=== PATIENT | female | born 1930 | race Caucasian/White ===

== ENCOUNTER 2016-06-22 12:23 | Emergency (ER) | payer MEDICARE, BC | END 2016-06-22 13:14 | disposition home or self-care (01) | DX: S50.12XA Contusion of left forearm, initial encounter (principal); W22.8XXA Striking against or struck by other objects, initial encounter; Y93.E9 Activity, other interior property and clothing maintenance; Y92.003 Bedroom of unspecified non-institutional (private) residence as the place of occurrence of the external cause; Y99.8 Other external cause status; I10 Essential (primary) hypertension; E03.9 Hypothyroidism, unspecified ==

== ENCOUNTER 2016-11-13 08:17 | Outpatient (CLI) | payer MEDICARE, BC ==
[2016-11-13 08:54] LABS: BASOPHILS % (AUTO) 0.5 %; EOSINOPHILS # (AUTO) 0.1 10^3/uL (0.0-0.7); EOSINOPHILS % (AUTO) 2.1 %; HCT - HEMATOCRIT 46.1 % (37.0-47.0); HGB - HEMOGLOBIN 15.2 g/dL (12.0-16.0); LYMPHOCYTES # (AUTO) 1.5 10^3/uL (1.5-3.5); LYMPHOCYTES % (AUTO) 28.5 %; MEAN CORPUSCULAR HEMOGLOBIN 29.3 pg (27.0-31.0); MEAN CORPUSCULAR VOLUME 88.8 fL (81.0-99.0); MEAN PLATELET VOLUME 7.2 fL (7.9-10.8); MONOCYTES # (AUTO) 0.4 10^3/uL (0.0-1.0); MONOCYTES % (AUTO) 7.3 %; NEUTROPHILS # (AUTO) 3.3 10^3/uL (1.5-6.6); NEUTROPHILS % (AUTO) 61.6 %; RED CELL DISTRIBUTION WIDTH 15.1 % (12.0-15.0); UNCORRECTED WHITE BLOOD COUNT 5.4 x10^3/uL; WHITE BLOOD COUNT 5.4 x10^3/uL (4.8-10.8)
[2016-11-13 09:12] LABS: ALBUMIN/GLOBULIN RATIO 1.4 (1.0-2.2); BILIRUBIN,TOTAL 0.5 mg/dL (0.2-1.0); BUN - BLOOD UREA NITROGEN 21 mg/dL (6-20); CARBON DIOXIDE - CO2 28 mmol/L (21-32); CHLORIDE 105 mmol/L (101-111); CHOL/HDL RATIO 3.3 (<4.4); CHOLESTEROL 129 mg/dL; CREATININE 0.8 mg/dL (0.4-1.0); GFR - MDRD 68 (>89); GLUCOSE 127 mg/dL (70-100); HDL CHOLESTEROL 39 mg/dL; LDL/HDL RATIO 1.8 (<4.4); POTASSIUM 4.2 mmol/L (3.5-5.0); SODIUM 142 mmol/L (135-145); TOTAL PROTEIN 6.8 g/dL (6.7-8.2); TRIGLYCERIDES 104 mg/dL; VLDL CHOLESTEROL 21 mg/dL
[2016-11-13 09:44] LABS: HEMOGLOBIN A1C 0.71 g/dL
== END 2016-11-13 08:18 | disposition home or self-care (01) ==
LOC: LAB 08:17
PROVIDERS: ATTEND Internal Medicine
DX: M19.90 Unspecified osteoarthritis, unspecified site (principal); Z79.899 Other long term (current) drug therapy; I73.9 Peripheral vascular disease, unspecified; E78.5 Hyperlipidemia, unspecified; E03.9 Hypothyroidism, unspecified; C50.919 Malignant neoplasm of unspecified site of unspecified female breast; I10 Essential (primary) hypertension
CPT/HCPCS: 36415; 80053; 80061; 83036; 84443; 85025

== ENCOUNTER 2016-11-26 10:43 | Outpatient (CLI) | payer MEDICARE, BC ==
--- NOTE | 2016-11-26 16:28 | DEXA Report ---
DEXA SCAN: 11/26/2016 CLINICAL INDICATION: Postmenopausal. TECHNIQUE: Dual energy x-ray absorptiometry (DXA) was performed on a [employer] system. Regions measured are the AP spine, femoral neck, and, if needed, forearm. COMPARISON: None. In accordance with the International Society for Clinical Densitometry (ISCD) guidelines, data from previous exams may be reanalyzed using current recommendations and techniques. This is done to allow a more accurate basis for comparison with the current study. FINDINGS The data for the lumbar spine is as follows: REGION BMD (g/cm/cm) T-SCORE Z-SCORE L1 0.998 -1.1 -0.1 L2 1.181 -0.2 0.9 L3 1.303 0.9 1.9 L4 1.211 0.1 1.1 TOTAL 1.177 0.0 1.0 NOTE: All evaluable vertebrae are used for classification. The data for the hip is as follows: REGION BMD (g/cm/cm) T-SCORE Z-SCORE Neck 0.742 -2.1 -0.2 TOTAL 0.748 -2.1 -0.3 NOTE: The femoral neck or total proximal femur, whichever is lowest, is used for classification. IMPRESSION: THE WHO CLASSIFICATION BASED ON THE INTERNATIONAL REFERENCE STANDARD IS OSTEOPENIA. THE FRACTURE RISK IS INCREASED. RECOMMENDATION: Patients with diagnosis of osteoporosis or osteopenia should have regular bone mineral density assessment. For those eligible for Medicare, routine testing is allowed once every 2 years. Testing frequency can be increased for patients who have rapidly progressing disease or for those who are receiving medical therapy to restore bone mass. COMMENT: World Health Organization (WHO) definitions for osteoporosis and osteopenia: NORMAL BMD: T-score at -1.0 or higher, fracture risk is low. OSTEOPENIA BMD: T-score between -1.0 and -2.5, fracture risk is increased. OSTEOPOROSIS BMD: T-score at -2.5 or lower, fracture risk high. National Osteoporosis Foundation recommends: 1. Obtain adequate dietary calcium (at least 1200 mg per day) and vitamin D (400 -800 international units per day). 2. Participate, as appropriate, in regular weightbearing and muscle- strengthening exercise. 3. Avoid tobacco use and reduce alcohol and caffeine intake. 4. For more detailed information see the website at www.NOF.org. MTDD
== END 2016-11-26 10:44 | disposition home or self-care (01) ==
LOC: DI 10:43
PROVIDERS: ATTEND Internal Medicine
DX: M85.88 Other specified disorders of bone density and structure, other site (principal); Z78.0 Asymptomatic menopausal state
CPT/HCPCS: 77080

== ENCOUNTER 2017-02-05 15:14 | Emergency (ER) | payer MEDICARE, BC ==
[2017-02-05 15:30] VITALS: BP 191/73
--- NOTE | 2017-02-05 16:05 | ED Physician Documentation ---
PD HPI UPPER EXT INJURY - Stated complaint Stated Complaint: R MID FINGER LAC - Chief complaint Chief Complaint: Laceration - History obtained from History obtained from: Patient - History of Present Illness Location: Right, Finger (middle) Where injury occurred: Home Timing - onset: Yesterday - Additonal information Additional information: The patient is a pleasant 86-year-old female who cut her right middle finger yesterday when slicing meat. She is left-hand dominant. Tetanus status is up- to-date. Review of Systems Constitutional: denies: Fever Skin: reports: Laceration (s) PD PAST MEDICAL HISTORY - Past Medical History Past Medical History: Yes Cardiovascular: Hypertension Endocrine/Autoimmune: HyPOthyroidism Musculoskeletal: Osteoarthritis - Past Surgical History Past Surgical History: Yes Ortho: Other - Present Medications Home Medications: Ambulatory Orders Medication Instructions Recorded Confirmed Atorvastatin [Lipitor] 20 mg PO DAILY 08/22/14 02/05/17 Levothyroxine [Synthroid] 112 mcg PO DAILY 08/22/14 02/05/17 Lisinopril 40 mg PO DAILY 08/22/14 02/05/17 amLODIPine [Norvasc] 10 mg PO DAILY 08/22/14 02/05/17 hydroCHLOROthiazide 25 mg PO DAILY 08/22/14 02/05/17 [Hydrochlorothiazide] Multivitamin [Multi-Vitamin Daily] 1 tab PO DAILY 08/23/14 02/05/17 - Allergies Allergies/Adverse Reactions: Allergies Allergy/AdvReac Type Severity Reaction Status Date / Time No Known Drug Allergies Allergy Verified 02/05/17 15:29 - Social History Does the pt smoke?: No Smoking Status: Never smoker Does the pt drink ETOH?: No Does the pt have substance abuse?: No - Immunizations Immunizations are current?: Yes - POLST Patient has POLST: No PD ED PE NORMAL - Vitals Vital signs reviewed: Yes (Hypertensive initially) - General General: Alert and oriented X 3, Well developed/nourished - HEENT HEENT: Atraumatic - Respiratory Respiratory: No respiratory distress - Extremities Extremities: Other (There is a 1.5 cm laceration across the volar aspect of the right middle finger, just distal to the DIP joint. She has full flexion and extension of the DIP, PIP, and MCP joints against resistance. Distal neurovascular is intact.) - Neuro Neuro: Alert and oriented X 3, No motor deficit, No sensory deficit, Normal speech Results - Vitals Vitals: Vital Signs - 24 hr 02/05/17 15:24 Temperature 36.2 C L Heart Rate 68 Respiratory 16 Rate Blood Pressure 191/73 H O2 Saturation 98 Oxygen O2 Source [With Activity] Nasal cannula O2 Source [Without Activity] Nasal cannula O2 Source Room air Procedures - Laceration (location) Right middle finger Length in cm: 1.5 Wound type: Linear, Into subcut fat Neurovascular status: Sensory intact, Motor intact, Vascular intact Tendon involvement: Tendon intact Anesthesia: Lidocaine 1% Wound Preparation: Hibiclens, Irrigated copiously NS, Wound explored, To the base. No: FB identified Skin layer closure: Nylon, Interrupted, Size #-0 - enter number (5), Sutures - enter # (5) Other: Patient tolerated well, No complications, Neurovascular intact, Dressing applied, Tetanus UTD Complexity: Simple PD MEDICAL DECISION MAKING - ED course Complexity details: considered differential, d/w patient ED course: The patient's presentation is significant for laceration of the right middle finger. She reports up-to-date tetanus status. Treatment in the emergency department included suture repair of the wound after local anesthetic with 1% lidocaine, and thorough irrigation. I discussed with her the expected course of healing, timing for suture removal, as well as potentially worrisome signs or symptoms that should prompt reevaluation in the emergency department. Departure - Departure Disposition: 01 Home, Self Care Clinical Impression: Laceration Condition: Stable Instructions: ED Laceration Hand Follow-Up: Som Jang MD [Primary Care Provider] - Comments: Keep the wound clean. Follow-up for suture removal in about 10 days. Follow-up sooner, or return to the emergency department, if you develop any sign of infection, or otherwise worsening symptoms.
[2017-02-05] MEDS ORDERED: BACITRACIN OINT TOP ONE (16:10)
== END 2017-02-05 16:14 | disposition home or self-care (01) ==
LOC: ED 15:14
DX: S61.212A Laceration without foreign body of right middle finger without damage to nail, initial encounter (principal); W26.0XXA Contact with knife, initial encounter; Y93.G1 Activity, food preparation and clean up; Y92.010 Kitchen of single-family (private) house as the place of occurrence of the external cause; I10 Essential (primary) hypertension; E03.9 Hypothyroidism, unspecified; M19.90 Unspecified osteoarthritis, unspecified site
CPT/HCPCS: 12001; 99283; A9270

== ENCOUNTER 2017-02-22 10:34 | Outpatient (CLI) | payer MEDICARE, BC | END 2017-02-22 10:35 | disposition home or self-care (01) | LOC: RT 10:34 | PROVIDERS: ATTEND Internal Medicine | DX: J44.9 Chronic obstructive pulmonary disease, unspecified (principal) | CPT/HCPCS: 94010 ==

== ENCOUNTER 2017-02-26 08:28 | Outpatient (CLI) | payer MEDICARE, BC | END 2017-02-26 08:29 | disposition home or self-care (01) | LOC: DI 08:28 | PROVIDERS: ATTEND Internal Medicine | DX: R01.1 Cardiac murmur, unspecified (principal) | CPT/HCPCS: 93306 ==

== ENCOUNTER 2017-11-30 08:00 | Outpatient (CLI) | payer MEDICARE, BC ==
[2017-11-30 13:58] LABS: BASOPHILS % (AUTO) 0.2 %; EOSINOPHILS # (AUTO) 0.1 10^3/uL (0.0-0.7); EOSINOPHILS % (AUTO) 2.3 %; HGB - HEMOGLOBIN 15.6 g/dL (12.0-16.0); LYMPHOCYTES # (AUTO) 1.3 10^3/uL (1.5-3.5); LYMPHOCYTES % (AUTO) 24.6 %; MEAN CORPUSCULAR HEMOGLOBIN 30.1 pg (27.0-31.0); MEAN CORPUSCULAR HGB CONC 34.4 g/dL (32.0-36.0); MEAN CORPUSCULAR VOLUME 87.6 fL (81.0-99.0); MEAN PLATELET VOLUME 7.9 fL (7.9-10.8); MONOCYTES # (AUTO) 0.4 10^3/uL (0.0-1.0); MONOCYTES % (AUTO) 7.1 %; NEUTROPHILS # (AUTO) 3.6 10^3/uL (1.5-6.6); NEUTROPHILS % (AUTO) 65.8 %; PLT - PLATELET COUNT 173 10^3/uL (130-450); RED BLOOD COUNT 5.18 10^6/uL (4.20-5.40); RED CELL DISTRIBUTION WIDTH 14.7 % (12.0-15.0); WHITE BLOOD COUNT 5.4 x10^3/uL (4.8-10.8)
[2017-11-30 14:26] LABS: ALBUMIN 4.1 g/dL (3.2-5.5); ALBUMIN/GLOBULIN RATIO 1.5 (1.0-2.2); ALKALINE PHOSPHATASE 64 IU/L (42-121); ALT ALANINE AMINOTRANSFERASE 21 IU/L (10-60); AST ASPARTATE AMINOTRANSFERASE 21 IU/L (10-42); BILIRUBIN,TOTAL 0.7 mg/dL (0.2-1.0); BUN - BLOOD UREA NITROGEN 20 mg/dL (6-20); CALCIUM 8.6 mg/dL (8.5-10.3); CARBON DIOXIDE - CO2 29 mmol/L (21-32); CHLORIDE 103 mmol/L (101-111); CHOL/HDL RATIO 3.2 (<4.4); CHOLESTEROL 130 mg/dL; CREATININE 0.9 mg/dL (0.4-1.0); GFR - MDRD 59 (>89); GLUCOSE 112 mg/dL (70-100); HDL CHOLESTEROL 41 mg/dL; LDL CHOLESTEROL,CALCULATED 60 mg/dL; LDL/HDL RATIO 1.5 (<4.4); SODIUM 140 mmol/L (135-145); TOTAL PROTEIN 6.9 g/dL (6.7-8.2); VLDL CHOLESTEROL 29 mg/dL
== END 2017-11-30 08:01 | disposition home or self-care (01) ==
LOC: LAB.R 08:00
PROVIDERS: ATTEND Internal Medicine
DX: E88.81 Metabolic syndrome and other insulin resistance (principal); E78.5 Hyperlipidemia, unspecified; J44.9 Chronic obstructive pulmonary disease, unspecified; E03.9 Hypothyroidism, unspecified; C50.919 Malignant neoplasm of unspecified site of unspecified female breast; I10 Essential (primary) hypertension; Z79.899 Other long term (current) drug therapy
CPT/HCPCS: 36415; 80053; 80061; 83721; 84443; 85025

== ENCOUNTER 2018-04-18 08:34 | Emergency (ER) | payer MEDICARE, BC ==
--- NOTE | 2018-04-18 08:48 | ED Physician Documentation ---
PD HPI TRUNK INJURY - Stated complaint Stated Complaint: GLF/RIB BACK AND ABD PX - Chief complaint Chief Complaint: General - History obtained from History obtained from: Patient - History of Present Illness Location: Anterior chest Type of injury: Fall (She says her feet got caught in blanket and she fell forward.) Timing - onset: How many days ago (3) Timing - duration: Days (3) Timing - details: Abrupt onset, Still present Quality: Pain Worsened by: Moving, Palpating, Other (deep breathing and cough) Associated symtptoms: No: Weakness, Numbness Review of Systems Constitutional: denies: Fever, Chills, Myalgias Nose: reports: Congestion Throat: denies: Sore throat Cardiac: reports: Chest pain / pressure (since the fall, not prior.). denies: Palpitations Respiratory: reports: Dyspnea, Cough (for couple of weeks, with congestion and some wheezing feeling.) PD PAST MEDICAL HISTORY - Past Medical History Cardiovascular: Hypertension Endocrine/Autoimmune: HyPOthyroidism Musculoskeletal: Osteoarthritis - Past Surgical History Past Surgical History: Yes Ortho: Other - Present Medications Home Medications: Ambulatory Orders Medication Instructions Recorded Confirmed Levothyroxine [Synthroid] 112 mcg PO DAILY 08/22/14 02/05/17 RX: Atorvastatin [Lipitor] 20 mg PO DAILY 08/22/14 02/05/17 RX: Lisinopril 40 mg PO DAILY 08/22/14 02/05/17 RX: amLODIPine [Norvasc] 10 mg PO DAILY 08/22/14 02/05/17 RX: hydroCHLOROthiazide 25 mg PO DAILY 08/22/14 02/05/17 [Hydrochlorothiazide] Multivitamin [Multi-Vitamin Daily] 1 tab PO DAILY 08/23/14 02/05/17 Benzonatate [Tessalon Perle] 100 mg PO TID PRN #25 capsule 04/18/18 Dexamethasone [Decadron] 4 mg PO DAILY #5 tablet 04/18/18 Oxycodone HCl/Acetaminophen 1 each PO Q6H PRN #20 tablet 04/18/18 [Percocet 5-325 mg Tablet] RX: Albuterol Sulf [Ventolin Hfa 2 - 3 puffs INH Q4HR PRN #1 inhaler 04/18/18 Inhaler] RX: Azithromycin [Zithromax] 0 mg PO DAILY #6 tablet 04/18/18 - Allergies Allergies/Adverse Reactions: Allergies Allergy/AdvReac Type Severity Reaction Status Date / Time No Known Drug Allergies Allergy Verified 04/18/18 08:47 - Social History Does the pt smoke?: No Smoking Status: Never smoker Does the pt drink ETOH?: No Does the pt have substance abuse?: No - Immunizations Immunizations are current?: Yes - POLST Patient has POLST: No PD ED PE NORMAL - Vitals Vital signs reviewed: Yes - General General: Alert and oriented X 3, Well developed/nourished, Other (appears in pain with breathing and moving. Tender anterior lower chest without crepitance nor deformity. ) - HEENT HEENT: Ears normal, Pharynx benign - Neck Neck: Supple, no meningeal sign, No bony TTP, No adenopathy - Cardiac Cardiac: RRR, No murmur - Respiratory Respiratory: No: Clear bilaterally (some congestion sounds in central area and has mild expiratory wheezing. ) - Abdomen Abdomen: Normal bowel sounds, Soft, Non distended, No organomegaly, Other (mild tenderness LUQ just under the ribs/costal margin. No percussion nor rebound tenderness. ) - Back Back: No CVA TTP, No spinal TTP - Derm Derm: Normal color, Warm and dry - Extremities Extremities: No tenderness to palpate, Normal ROM s pain, No edema, No calf tenderness / cord Results - Vitals Vitals: Vital Signs - 24 hr 04/18/18 04/18/18 04/18/18 08:38 09:45 11:09 Temperature 36.2 C L 36.7 C Heart Rate 92 88 78 Respiratory 20 16 20 Rate Blood Pressure 191/99 H 152/70 H O2 Saturation 95 94 Oxygen O2 Source [With Activity] Nasal cannula O2 Source [Without Activity] Nasal cannula O2 Source Room air - Rads (name of study) chest CT Radiology: Prelim report reviewed (no fractures. Small infiltrate upper lung c/w pneumonia. ) PD MEDICAL DECISION MAKING - ED course Complexity details: reviewed results, re-evaluated patient (feeling better with pain meds. ), considered differential, d/w patient Departure - Departure Disposition: Home, Self Care Clinical Impression: Fall from slip, trip, or stumble Qualifiers: Encounter type: initial encounter Qualified Code(s): W01.0XXA - Fall on same level from slipping, tripping and stumbling without subsequent striking against object, initial encounter Chest wall contusion Qualifiers: Encounter type: initial encounter Laterality: unspecified laterality Qualified Code(s): S20.219A - Contusion of unspecified front wall of thorax, initial encounter Pneumonia Qualifiers: Pneumonia type: due to unspecified organism Laterality: left Lung location: upper lobe of lung Qualified Code(s): J18.1 - Lobar pneumonia, unspecified organism Upper respiratory infection Qualifiers: URI type: unspecified URI Qualified Code(s): J06.9 - Acute upper respiratory infection, unspecified Condition: Stable Record reviewed to determine appropriate education?: Yes Instructions: ED Contusion Chest Wall, ED Pneumonia Adult Follow-Up: Som Jang MD [Primary Care Provider] - Prescriptions: RX: Albuterol Sulf [Ventolin Hfa Inhaler] 2 - 3 puffs INH Q4HR PRN #1 inhaler PRN Reason: Shortness Of Air/Wheezing RX: Azithromycin [Zithromax] 0 mg PO DAILY #6 tablet Benzonatate [Tessalon Perle] 100 mg PO TID PRN #25 capsule PRN Reason: Cough Dexamethasone [Decadron] 4 mg PO DAILY #5 tablet Oxycodone HCl/Acetaminophen [Percocet 5-325 mg Tablet] 1 each PO Q6H PRN #20 tablet PRN Reason: pain Comments: For the chest pain from the injury, use some Aleve or ibuprofen 2 tablets twice a day with food. Add Tylenol or Percocet if needed for pain. The Percocet is what we gave you here. For the cough and congestion, use Decadron steroid daily for 5 more days. Tessalon as needed for the cough. Use the albuterol inhaler 2-3 puffs 4 times a day for the next week. That did seem to help your breathing here. The CT scan did not show any obvious fractures. It did show a likely early pneumonia and so we will add Zithromax antibiotic as well for your cough. Recheck if not improving over the next few days and follow-up with your primary care later this coming week, call for an appointment. Return sooner if worsening. Discharge Date/Time: 04/18/18 11:37
[2018-04-18] MEDS ORDERED: KETOROLAC 30 MG/ML VIAL IM STA (09:09)
[2018-04-18] MEDS ORDERED: oxyCODONE 5 MG TABLET PO STA (09:09)
[2018-04-18] MEDS ORDERED: ALBUTEROL NEB 2.5 MG/3 ML INH STA (09:10)
--- NOTE | 2018-04-18 10:15 | CT Report ---
Reason: fall 3 days ago, with sternal/right ant ribs pain Procedure Date: 04/18/2018 Accession Number: [id number] / [id number] Procedure: CT - CHEST WO CPT Code: FULL RESULT: EXAM: CT CHEST EXAM DATE: 04/18/2018 09:38 AM. CLINICAL HISTORY: Fall 3 days ago, with sternal/right ant ribs pain. COMPARISONS: None. TECHNIQUE: Routine helical CT imaging was performed through the chest. IV contrast: None. Reconstructions: Coronal and sagittal. In accordance with CT protocol optimization, one or more of the following dose reduction techniques were utilized for this exam: automated exposure control, adjustment of mA and/or KV based on patient size, or use of iterative reconstructive technique. FINDINGS: Lungs/Pleura: Patchy consolidations and tree-in-bud opacities in the right upper lobe (series 4, image 22). No pleural effusion or pneumothorax. Mediastinum: 3 vessel coronary artery disease. No lymphadenopathy. Bones: Unremarkable. Visualized Abdomen: Multiple punctate calcifications in the spleen which can be seen in the setting of prior granulomatous infection. Other: Multiple surgical clips in the left breast and left axilla. IMPRESSION: 1. No displaced sternal or rib fractures identified. There is subtle cortical irregularity along the anterior aspect of the mid sternum seen on the lateral view which may represent sequela of injury though there is no adjacent fat stranding or hematoma. 2. Patchy consolidations in the right upper lobe concerning for aspiration or infectious process. RADIA
[2018-04-18 11:10] VITALS: BP 152/70
== END 2018-04-18 11:37 | disposition home or self-care (01) ==
LOC: ED 08:34
DX: S20.219A Contusion of unspecified front wall of thorax, initial encounter (principal); W01.0XXA Fall on same level from slipping, tripping and stumbling without subsequent striking against object, initial encounter; J18.1 Lobar pneumonia, unspecified organism; J06.9 Acute upper respiratory infection, unspecified; I10 Essential (primary) hypertension
CPT/HCPCS: 71250; 94640; 99283

== ENCOUNTER 2018-04-18 16:45 | Emergency (ER) | payer MEDICARE, BC ==
--- NOTE | 2018-04-18 17:07 | ED Physician Documentation ---
PD HPI DYSPNEA - Stated complaint Stated Complaint: SOA - Chief complaint Chief Complaint: General - History obtained from History obtained from: Patient, Family (who said it looked like pill may have gotten stuck part way, she gagged/coughed and then seemed to be anxious and with trouble breathing. Improved in a minute. Concerned about it being an allergic reaction. No general symptoms, hives, itching nor nausea.) - History of Present Illness Timing - onset: How many minutes ago (15-20), Today Timing - onset during: Other (she had just taken one of the meds she had gotten from pharmacy from ED visit earlier today. While taking it, she had feeling of throat discomfort and then trouble breathing.) Timing - duration: Minutes Timing - details: Abrupt onset, Now resolved (with just mild feeling of discomfort when swallowing.). No: Still present Inciting event(s): URI. No: Out of meds Associated symptoms: Cough, Wheezing, Chest pain / discomfort. No: Fever Recently seen: Emergency Dept (few hours ago here in the ER.) Review of Systems Constitutional: denies: Fever, Chills Nose: reports: Congestion Throat: denies: Sore throat Cardiac: reports: Chest pain / pressure (some from coughing, but mostly from recent fall onto chest.) Respiratory: reports: Cough, Wheezing GI: denies: Abdominal Pain, Nausea, Vomiting, Diarrhea PD PAST MEDICAL HISTORY - Past Medical History Cardiovascular: Hypertension Endocrine/Autoimmune: HyPOthyroidism Musculoskeletal: Osteoarthritis - Past Surgical History Past Surgical History: Yes Ortho: Other - Present Medications Home Medications: Ambulatory Orders Medication Instructions Recorded Confirmed Atorvastatin [Lipitor] 20 mg PO DAILY 08/22/14 02/05/17 Levothyroxine [Synthroid] 112 mcg PO DAILY 08/22/14 02/05/17 Lisinopril 40 mg PO DAILY 08/22/14 02/05/17 amLODIPine [Norvasc] 10 mg PO DAILY 08/22/14 02/05/17 hydroCHLOROthiazide 25 mg PO DAILY 08/22/14 02/05/17 [Hydrochlorothiazide] Multivitamin [Multi-Vitamin Daily] 1 tab PO DAILY 08/23/14 02/05/17 Albuterol Sulf [Ventolin Hfa 2 - 3 puffs INH Q4HR PRN #1 inhaler 04/18/18 Inhaler] Azithromycin [Zithromax] 0 mg PO DAILY #6 tablet 04/18/18 Benzonatate [Tessalon Perle] 100 mg PO TID PRN #25 capsule 04/18/18 Dexamethasone [Decadron] 4 mg PO DAILY #5 tablet 04/18/18 Oxycodone HCl/Acetaminophen 1 each PO Q6H PRN #20 tablet 04/18/18 [Percocet 5-325 mg Tablet] - Allergies Allergies/Adverse Reactions: Allergies Allergy/AdvReac Type Severity Reaction Status Date / Time No Known Drug Allergies Allergy Verified 04/18/18 16:55 - Social History Does the pt smoke?: No Smoking Status: Never smoker Does the pt drink ETOH?: No Does the pt have substance abuse?: No - Immunizations Immunizations are current?: Yes - POLST Patient has POLST: No PD ED PE NORMAL - Vitals Vital signs reviewed: Yes - General General: Alert and oriented X 3, No acute distress (normal voice and breathing. ), Well developed/nourished - HEENT HEENT: Pharynx benign (minimal edema of the uvula. Else is normal appearing. ) - Neck Neck: Supple, no meningeal sign, No adenopathy - Cardiac Cardiac: RRR, No murmur - Respiratory Respiratory: Clear bilaterally - Abdomen Abdomen: Soft, Non tender - Derm Derm: Normal color, Warm and dry - Extremities Extremities: No tenderness to palpate, Normal ROM s pain, No edema, No calf tenderness / cord - Neuro Neuro: Alert and oriented X 3, No motor deficit, Normal speech Results - Vitals Vitals: Vital Signs - 24 hr 04/18/18 04/18/18 16:53 18:00 Temperature 36.7 C 36.5 C Heart Rate 84 70 Respiratory 18 18 Rate Blood Pressure 179/104 H 165/72 H O2 Saturation 100 98 Oxygen O2 Source [With Activity] Nasal cannula O2 Source [Without Activity] Nasal cannula O2 Source Room air PD MEDICAL DECISION MAKING - ED course Complexity details: considered differential (sounds like choking episode or pill getting stuck, with local irritation, rather than allergic reaction. She does not want to take med again anyways. She thinks it was the Tessalon. Pill count shows that she had taken one of each med at some point since got them, so hard to know which gave symptoms. ), d/w patient Departure - Departure Disposition: 01 Home, Self Care Clinical Impression: Choking episode Medication reaction Qualifiers: Encounter type: initial encounter Qualified Code(s): T50.905A - Adverse effect of unspecified drugs, medicaments and biological substances, initial encounter Condition: Stable Record reviewed to determine appropriate education?: Yes Follow-Up: Som Jagn MD [Primary Care Provider] - Comments: The timing of it with feeling discomfort while swallowing the pill would suggest a local irritation effect rather than a true allergy per se. You can take your other medicines tomorrow as directed one at a time with a good amount of water swallowing them down. You can avoid the Tessalon (benzonatate) if that seem to be the one that caused the reaction. You could try taking it with a good amount of water as that would keep the local irritation effect from happening. Discharge Date/Time: 04/18/18 18:01
[2018-04-18] MEDS ORDERED: diphenhydrAMINE ELIXIR 25 MG/10 ML UDC PO STA (17:36)
[2018-04-18 18:00] VITALS: BP 165/72
== END 2018-04-18 18:01 | disposition home or self-care (01) ==
LOC: ED 16:45
DX: T18.198A Other foreign object in esophagus causing other injury, initial encounter (principal); X58.XXXA Exposure to other specified factors, initial encounter; J18.1 Lobar pneumonia, unspecified organism; J06.9 Acute upper respiratory infection, unspecified; S20.219A Contusion of unspecified front wall of thorax, initial encounter; W01.0XXA Fall on same level from slipping, tripping and stumbling without subsequent striking against object, initial encounter; I10 Essential (primary) hypertension
CPT/HCPCS: 71250; 94640; 96372; 99283; A9270